=== PATIENT | female | born 1960 | race Caucasian/White ===

== ENCOUNTER 2020-09-22 19:15 | Emergency (ER) | payer OTHER ==
[~2020-09-22] VITALS: Ht 154.9 cm; Wt 76.2 kg
[2020-09-22] MEDS ORDERED: COZAAR 25 MG TA25 M1 PO (20:05)
[2020-09-22] MEDS ORDERED: NORVASC5 MG PO (20:05)
[2020-09-22] MEDS ORDERED: KAPSPARGO SPRIN25 MG PO (20:05)
[2020-09-22] MEDS ORDERED: HUMALOG100 UNIT/1 SUBQ (20:06)
[2020-09-22] MEDS ORDERED: LANTUS100 UNIT/M SUBQ (20:06)
[2020-09-22] MEDS ORDERED: SYNTHROID75 MC1 PO (20:06)
[2020-09-22] MEDS ORDERED: ZOFRAN ODT4 MG PO (22:13)
[2020-09-22] MEDS ORDERED: PROMS25 WY RECTAL (22:13)
[2020-09-22 22:20] VITALS: BP 117/62
== END 2020-09-22 22:20 | disposition home or self-care (01) ==
LOC: M.ERS 19:15
DX: U07.1 COVID-19 (principal); R19.7 Diarrhea, unspecified; R11.2 Nausea with vomiting, unspecified; E11.9 Type 2 diabetes mellitus without complications; I10 Essential (primary) hypertension; E03.9 Hypothyroidism, unspecified; Z79.4 Long term (current) use of insulin; Z79.899 Other long term (current) drug therapy; Z88.6 Allergy status to analgesic agent

== ENCOUNTER 2020-09-29 10:52 | Inpatient (IN) | payer OTHER ==
[~2020-09-29] VITALS: Ht 154.9 cm; Wt 76.2 kg
[~2020-09-29 10:52] MED LIST: COZAAR 25 MG TA25 M1 PO; HUMALOG100 UNIT/1 SUBQ; KAPSPARGO SPRIN25 MG PO; LANTUS100 UNIT/M SUBQ; NORVASC5 MG PO; PROMS25 WY RECTAL; SYNTHROID75 MC1 PO; ZOFRAN ODT4 MG PO
[2020-09-29 11:22] VITALS: BP 154/84
[2020-09-29 12:15] LABS: HEMOGLOBIN 12.6 gm/dL (12.0-15.0); MCH 28.9 pg (26.0-34.0); MCHC 34.2 g/dL (28.0-37.0); MCV 84.5 fL (80.0-100.0); MPV 8.6 fl. (7.2-11.1); NUCLEATED RBCS 0 /100WBC; PLATELET COUNT* 231 thou/uL (150-400); RBC 4.38 mil/uL (4.20-5.00); RDW-CV 12.6 % (10.5-14.5); WBC 5.7 thou/uL (4.0-11.0)
[2020-09-29 12:21] LABS: CALCIUM 7.8 mg/dL (8.5-10.1); CREATININE 0.7 mg/dL (0.6-1.3); POTASSIUM 3.3 mmol/L (3.5-5.1)
[2020-09-29 13:02] LABS: ABSOLUTE LYMPHOCYTES 0.2 thou/uL (0.8-5.3); ABSOLUTE MONOCYTES 0.2 thou/uL (0.0-1.2); ABSOLUTE NEUTROPHILS 5.4 thou/uL (1.6-8.1); PLATELET ESTIMATE ADEQUATE
[2020-09-29 18:12] VITALS: BP 132/66
[2020-09-29 22:00] VITALS: BP 112/60
[2020-09-30] VITALS (7 sets, daily range): BP systolic 112–114; BP diastolic 60–70
[2020-09-30 03:49] LABS: HEMATOCRIT 38.3 % (37.0-47.0); MCH 28.7 pg (26.0-34.0); MCHC 33.9 g/dL (28.0-37.0); MCV 84.7 fL (80.0-100.0); MPV 8.7 fl. (7.2-11.1); RBC 4.52 mil/uL (4.20-5.00); RDW-CV 12.5 % (10.5-14.5)
[2020-09-30 03:50] LABS: CALCIUM 8.1 mg/dL (8.5-10.1); CREATININE 0.8 mg/dL (0.6-1.3); POTASSIUM 4.1 mmol/L (3.5-5.1)
[2020-09-30] MEDS ORDERED: PHENERGAN 25 MG25 M1 PO (08:14)
[2020-09-30] MEDS ORDERED: PREDNISONE 20 M20 M1 PO (08:14)
== END 2020-09-30 16:44 | disposition home or self-care (01) | DRG 177 ==
LOC: M.ERS 10:52 → M.TBA-ER 13:07
PROVIDERS: Family Medicine; Nurse Practitioner Family; ADMIT Internal Medicine; ATTEND Internal Medicine
DX: U07.1 COVID-19 (principal); J12.82 Pneumonia due to coronavirus disease 2019; J96.01 Acute respiratory failure with hypoxia; E87.1 Hypo-osmolality and hyponatremia; I10 Essential (primary) hypertension; E03.9 Hypothyroidism, unspecified; E11.65 Type 2 diabetes mellitus with hyperglycemia; E87.6 Hypokalemia; Z79.899 Other long term (current) drug therapy; Z79.4 Long term (current) use of insulin; Z88.8 Allergy status to other drugs, medicaments and biological substances; Z88.6 Allergy status to analgesic agent